=== PATIENT | male | born 1960 | race Caucasian/White ===

== ENCOUNTER 2016-09-20 23:49 | Emergency (ER) | payer MEDICAID ==
[~2016-09-20] VITALS: Ht 170.2 cm; Wt 67.5 kg
[~2016-09-20 23:49] MED LIST: QUET100T4 PO
[2016-09-20 23:52] VITALS: BP 147/100
[2016-09-21] MEDS ORDERED: ACETAMINOPHEN 325 MG TABLET PO ONE (02:30)
[2016-09-21] MEDS ORDERED: ACETAMINOPHEN 325 MG TABLET ONE (02:38)
== END 2016-09-21 03:09 | disposition home or self-care (01) ==
LOC: ED 09-21 01:46
DX: S56.912A Strain of unspecified muscles, fascia and tendons at forearm level, left arm, initial encounter (principal); W19.XXXA Unspecified fall, initial encounter; Y93.89 Activity, other specified; Y92.89 Other specified places as the place of occurrence of the external cause; Y99.9 Unspecified external cause status
CPT/HCPCS: 99284

== ENCOUNTER 2017-01-16 12:53 | Emergency (ER) | payer MEDICAID ==
[~2017-01-16] VITALS: Ht 170.2 cm; Wt 69.0 kg
[2017-01-16 13:02] VITALS: BP 135/77
== END 2017-01-16 14:39 | disposition home or self-care (01) ==
LOC: ED 14:15
DX: S00.83XA Contusion of other part of head, initial encounter (principal); X58.XXXA Exposure to other specified factors, initial encounter; Y93.89 Activity, other specified; Y99.8 Other external cause status; Y92.410 Unspecified street and highway as the place of occurrence of the external cause
CPT/HCPCS: 70100; 70150

== ENCOUNTER 2017-01-27 16:00 | Emergency (ER) | payer MEDICAID ==
[~2017-01-27] VITALS: Ht 170.2 cm; Wt 71.9 kg
[2017-01-27] MEDS ORDERED: DIPH,PERTUSS(ACELL),TET VAC/PF 0.5 ML IM-VACC ONE ×2 (16:30→17:03)
[2017-01-27 16:52] LABS: BLOOD UREA NITROGEN 17 mg/dL (7-18)
[2017-01-27 17:10] VITALS: BP 117/76
== END 2017-01-27 17:12 | disposition home or self-care (01) ==
LOC: ED 17:06
DX: L30.9 Dermatitis, unspecified (principal); I10 Essential (primary) hypertension; E11.9 Type 2 diabetes mellitus without complications; F20.9 Schizophrenia, unspecified
CPT/HCPCS: 36415; 80048; 82040; 85025; 90471; 90715

== ENCOUNTER 2017-04-21 17:12 | Emergency (ER) | payer MEDICAID ==
[~2017-04-21] VITALS: Ht 160 cm; Wt 70.4 kg
[2017-04-21 17:13] VITALS: BP 139/86
== END 2017-04-21 18:20 | disposition home or self-care (01) ==
LOC: ED 18:12
DX: S63.642A Sprain of metacarpophalangeal joint of left thumb, initial encounter (principal); S63.651A Sprain of metacarpophalangeal joint of left index finger, initial encounter; E11.9 Type 2 diabetes mellitus without complications; I10 Essential (primary) hypertension; X58.XXXA Exposure to other specified factors, initial encounter; Y93.89 Activity, other specified; Y99.8 Other external cause status; Y92.89 Other specified places as the place of occurrence of the external cause
CPT/HCPCS: 29130; 99284

== ENCOUNTER 2017-12-02 20:02 | Emergency (ER) | payer MEDICAID ==
[~2017-12-02] VITALS: Ht 170.2 cm; Wt 70.8 kg
[~2017-12-02 20:02] MED LIST changes: +ATEN-103 PO; +ATEN50TA41 PO; +HYDR25CA94 PO
[2017-12-02 20:05] VITALS: BP 125/83
[2017-12-02] MEDS ORDERED: DIPH,PERTUSS(ACELL),TET VAC/PF 0.5 ML IM-VACC ONE ×2 (20:16→21:30)
[2017-12-02] MEDS ORDERED: CIPROFLOXACIN 500 MG TABLET ONE (21:10)
[2017-12-02] MEDS ORDERED: CIPROFLOXACIN 500 MG TABLET PO ONE (21:30)
== END 2017-12-02 21:32 | disposition home or self-care (01) ==
LOC: ED 21:05
DX: S91.331A Puncture wound without foreign body, right foot, initial encounter (principal); E11.9 Type 2 diabetes mellitus without complications; I10 Essential (primary) hypertension; W45.0XXA Nail entering through skin, initial encounter; Y93.89 Activity, other specified; Y92.89 Other specified places as the place of occurrence of the external cause; Y99.8 Other external cause status
CPT/HCPCS: 90471; 90715; 99284

== ENCOUNTER 2018-05-13 09:09 | Emergency (ER) | payer MEDICAID ==
[~2018-05-13] VITALS: Ht 160 cm; Wt 71.1 kg
[2018-05-13 09:15] VITALS: BP 135/79
[2018-05-13] MEDS ORDERED: IBUPROFEN 200 MG TABLET ONE (09:37)
[2018-05-13] MEDS ORDERED: ACETAMINOPHEN 325 MG TABLET ONE (09:37)
[2018-05-13] MEDS ORDERED: ACETAMINOPHEN 325 MG TABLET PO ONE (10:00)
[2018-05-13] MEDS ORDERED: IBUPROFEN 200 MG TABLET PO ONE (10:00)
== END 2018-05-13 11:32 | disposition home or self-care (01) ==
LOC: ED 10:39
DX: S63.502A Unspecified sprain of left wrist, initial encounter (principal); E11.9 Type 2 diabetes mellitus without complications; I10 Essential (primary) hypertension; F20.9 Schizophrenia, unspecified; X58.XXXA Exposure to other specified factors, initial encounter; Y93.89 Activity, other specified; Y92.89 Other specified places as the place of occurrence of the external cause; Y99.8 Other external cause status
CPT/HCPCS: 29260; 99284

== ENCOUNTER 2018-05-31 10:02 | Emergency (ER) | payer MEDICAID ==
[~2018-05-31] VITALS: Ht 160 cm; Wt 66.8 kg
[2018-05-31] MEDS ORDERED: FAMOTIDINE 20 MG TABLET ONE (10:47)
[2018-05-31] MEDS ORDERED: DIPHENHYDRAMINE 25 MG CAPSULE ONE (10:47)
[2018-05-31] MEDS ORDERED: DIPHENHYDRAMINE 25 MG CAPSULE PO ONE (11:00)
[2018-05-31] MEDS ORDERED: FAMOTIDINE 20 MG TABLET PO ONE (11:00)
[2018-05-31 11:28] VITALS: BP 148/85
== END 2018-05-31 12:41 | disposition home or self-care (01) ==
LOC: ED 12:35
DX: T78.1XXA Other adverse food reactions, not elsewhere classified, initial encounter (principal); I10 Essential (primary) hypertension; E11.9 Type 2 diabetes mellitus without complications; F20.9 Schizophrenia, unspecified; X58.XXXA Exposure to other specified factors, initial encounter
CPT/HCPCS: 99284; J7512; Q0163

== ENCOUNTER 2018-06-13 06:32 | Emergency (ER) | payer MEDICAID ==
[~2018-06-13] VITALS: Ht 160 cm; Wt 72.5 kg
[2018-06-13 06:40] VITALS: BP 101/59
== END 2018-06-13 08:00 | disposition home or self-care (01) ==
LOC: ED 07:05
DX: S60.222A Contusion of left hand, initial encounter (principal); Z72.9 Problem related to lifestyle, unspecified; Z59.0 Homelessness; W23.1XXA Caught, crushed, jammed, or pinched between stationary objects, initial encounter; Y93.89 Activity, other specified; Y92.89 Other specified places as the place of occurrence of the external cause; Y99.8 Other external cause status
CPT/HCPCS: 99282; 99283

== ENCOUNTER 2018-06-14 19:20 | Emergency (ER) | payer MEDICAID ==
[~2018-06-14] VITALS: Ht 160 cm; Wt 71.8 kg
[2018-06-14 19:23] VITALS: BP 124/73
== END 2018-06-14 21:21 | disposition left against medical advice (07) ==
LOC: ED 21:15
DX: M25.551 Pain in right hip (principal); M19.90 Unspecified osteoarthritis, unspecified site
CPT/HCPCS: 99283

== ENCOUNTER 2018-07-01 07:38 | Emergency (ER) | payer MEDICAID ==
[~2018-07-01] VITALS: Ht 160 cm; Wt 69.2 kg
[2018-07-01 07:40] VITALS: BP 154/79
[2018-07-01] MEDS ORDERED: ACETAMINOPHEN 325 MG TABLET PO ONE (08:00)
[2018-07-01] MEDS ORDERED: ACETAMINOPHEN 325 MG TABLET ONE (08:02)
== END 2018-07-01 08:16 ==
LOC: ED 07:50
DX: M79.674 Pain in right toe(s) (principal); F17.200 Nicotine dependence, unspecified, uncomplicated; I10 Essential (primary) hypertension; E11.9 Type 2 diabetes mellitus without complications
CPT/HCPCS: 99282

== ENCOUNTER 2018-08-14 12:26 | Emergency (ER) | payer SELFPAY ==
[~2018-08-14] VITALS: Ht 160 cm; Wt 71.5 kg
[2018-08-14] MEDS ORDERED: ZIPRASIDONE 20 MG INJ IM ONE ×2 (12:31→13:00)
[2018-08-14 12:46] VITALS: BP 168/110
[2018-08-14] MEDS ORDERED: PLEASE ENTER ALLERGIES MC SCH (13:00)
[2018-08-14] MEDS ORDERED: PLEASE ENTER HEIGHT AND WEIGHT MC SCH (13:00)
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
--- NOTE | 2018-08-14 14:01 | NUR ---
RESTRAINTS DC'D AT RAD. PT COOPERATIVE, MOSTLY SLEEPING, NO ACUTE S/S OF DISTRESS. WILL CONT TO MONITOR CLOSELY
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
--- NOTE | 2018-08-14 15:08 | NUR ---
PT AMBULATING IN HALLWAY WITH USE OF CANE. STEADY GAIT. ESCORTED TO ME DESK BY JESSI MAC.
== END 2018-08-14 15:11 | disposition home or self-care (01) ==
LOC: EDBD → MERGE 12:26 → ED 12:52
DX: F10.220 Alcohol dependence with intoxication, uncomplicated (principal); W00.0XXA Fall on same level due to ice and snow, initial encounter; Y93.89 Activity, other specified; Y92.89 Other specified places as the place of occurrence of the external cause; Y99.8 Other external cause status
CPT/HCPCS: 70450; 96372; 99284; J3486

== ENCOUNTER 2019-01-06 06:59 | Emergency (ER) | payer MEDICAID ==
[~2019-01-06] VITALS: Ht 170.2 cm; Wt 77.0 kg
[2019-01-06 07:06] VITALS: BP 161/99
--- NOTE | 2019-01-06 07:39 | NUR ---
pt to room at this time.
--- NOTE | 2019-01-06 08:25 | NUR ---
GOWN GIVEN. ORIENTED TO ROOM FOR SAFETY
== END 2019-01-06 09:14 | disposition home or self-care (01) ==
LOC: ED 08:50
DX: S16.1XXA Strain of muscle, fascia and tendon at neck level, initial encounter (principal); S60.222A Contusion of left hand, initial encounter; S09.90XA Unspecified injury of head, initial encounter; E11.9 Type 2 diabetes mellitus without complications; I10 Essential (primary) hypertension; Y08.89XA Assault by other specified means, initial encounter; Y93.89 Activity, other specified; Y92.410 Unspecified street and highway as the place of occurrence of the external cause; Y99.8 Other external cause status
CPT/HCPCS: 70450; 70486; 72125; 99284

== ENCOUNTER 2020-11-07 16:09 | Emergency (ER) | payer MEDICAID ==
[~2020-11-07] VITALS: Ht 162.6 cm; Wt 71.3 kg
[2020-11-07 16:20] VITALS: BP 101/78
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
== END 2020-11-07 18:28 | disposition home or self-care (01) ==
LOC: ED 17:00
DX: H65.02 Acute serous otitis media, left ear (principal); F17.210 Nicotine dependence, cigarettes, uncomplicated
CPT/HCPCS: 99283